=== PATIENT | female | born 1980 ===

== ENCOUNTER 2024-08-22 22:06 | Emergency (ER) | payer OTHER ==
[~2024-08-22] VITALS: Ht 160 cm; Wt 68.2 kg
[2024-08-22 22:10] VITALS: BP 154/95; PULSE 91; RESP 18; TEMP 97.9; O2SAT 100
[2024-08-22] MEDS ORDERED: DEXA5DRO4 OS (22:27)
[2024-08-22] MEDS ORDERED: ERYT3.5O8 OS (22:27)
== END 2024-08-22 22:58 | disposition home or self-care (01) ==
LOC: EMS 22:06
DX: H10.89 Other conjunctivitis (principal)
CPT/HCPCS: 99283; Z7502